=== PATIENT | female | born 1975 | race Caucasian/White ===

== ENCOUNTER 2019-04-25 11:22 | Day surgery (SDC) | payer OTHER ==
[2019-04-25] VITALS (11 sets, daily range): BP systolic 101–124; BP diastolic 60–76; PULSE 74–88; RESP 16–32; Ht 154.9 cm; Wt 78.3 kg
[~2019-04-25] VITALS: Ht 154.9 cm; Wt 78.3 kg
[~2019-04-25 11:22] MED LIST: LACTATED RINGER'S 1,000 ML IV SCH
[2019-04-25] MEDS ORDERED: ATOR10TA65 ORAL (12:14)
[2019-04-25] MEDS ORDERED: OMEP40CA6 ORAL (12:14)
[2019-04-25] MEDS ORDERED: METF-849 ORAL (12:14)
--- NOTE | 2019-04-25 13:00 | PREAC ---
Date/Time of Note Date/Time of Note DATE: 04/25/19 TIME: 12:58 Anesthesia Eval and Record Evaluation Time Pre-Procedure Interview DATE: 04/25/19 TIME: 12:58 Age 44 Sex female NPO: 8 hrs Preoperative diagnosis Excessive menstration Planned procedure D&C Past Medical History Past Medical History: Includes Cardio: Dyslipidemia Endo: Diabetes GI: GERD, Morbid obesity Surgery & Anesthesia Issues No known issue Meds Anticoagulation: No Beta Julien within 24 hr: No Reason Beta Julien not given: Pt. not on B-Julien Reported Medications Atorvastatin (Atorvastatin) 10 Mg Tablet, 20 MG ORAL DAILY 04/25/19 Omeprazole* (Omeprazole*) 40 Mg Capsule.dr, 1 CAP ORAL DAILY 04/25/19 Metformin* (Glucophage*) 500 Mg Tab, 1 TAB ORAL DAILY 04/25/19 Current Medications Lactated Ringer's 1,000 ml @ 125 mls/hr Q8H IV Last administered on 04/25/19at 12:10; Admin Dose 125 MLS/HR; Start 04/25/19 at 07:00; Stop 04/25/19 at 19:00 Meds reviewed: Yes Allergies Coded Allergies: No Known Allergy (Unverified , 04/25/19) Allergies Reviewed: Yes Labs/Studies Labs Reviewed: Reviewed by anesthesiologist test: N/A Studies: ECG Pre-procedure Exam Last vitals Vital Signs Date Temp Pulse Resp B/P (MAP) Pulse Ox O2 O2 Flow FiO2 Time Delivery Rate 04/25/19 98.3 77 16 124/76 98 Room Air 12:14 (92) Airway: Adequate mouth opening, Adequate thyromental dist Mallampati: Mallampati II Teeth: Normal Lung: Normal Heart: Normal ASA Physical Status ASA physical status: 3 Emergency: None Planned Anesthetic General/MAC: LMA Planned Pain Management Parenteral pain med Pre-operative Attestations Prior to commencing anesthesia and surgery, the patient was re-evaluated, there was verification of: *The patient's identity *The results of appropriate recent lab work and preoperative vital signs *The above evaluation not changing prior to induction *Anesthetic plan, risk benefits, alternative and complications discussed with patient/family; questions answered; patient/family understands, accepts and wishes to proceed. FLOR TIAN MD Apr 25, 2019 13:00
--- NOTE | 2019-04-25 13:20 | HPN ---
Date/Time of Note Date/Time of Note DATE: 04/25/19 TIME: 13:20 Interval H&P Admission Note Pt. seen H&P reviewed: No system changes LIGIA SALDANA MD Apr 25, 2019 13:20
[2019-04-25] MEDS ORDERED: MIDAZOLAM 1 MG/ML 2 ML INJ ONE (13:31)
[2019-04-25] MEDS ORDERED: FENTAnyl 50 MCG/ML VIAL ONE (13:32)
[2019-04-25] MEDS ORDERED: CEFAZOLIN 1 GM INJ ONE (14:29)
[2019-04-25] MEDS ORDERED: LIDOCAINE 2% (SDV) 5 ML INJ ONE (14:29)
[2019-04-25] MEDS ORDERED: PROPOFOL 20 ML ONE (14:29)
[2019-04-25] MEDS ORDERED: ONDANSETRON 4 MG INJ ONE (14:29)
--- NOTE | 2019-04-25 14:32 | SIPON ---
Date/Time of Note Date/Time of Note DATE: 04/25/19 TIME: 14:31 Operative Report Preoperative Diagnosis menometrorrhagia Postoperative Diagnosis see pathologic report Operation/Procedure Performed HYsteroscopic endometrial currettings Surgeon see signature line inventory assistant paul YOUNG Anesthesia: general Estimated blood loss: minimal Transfusion Required none Specimen enometrial curetting Grafts/Implants none Complications none LIGIA SALDANA MD Apr 25, 2019 14:32
--- NOTE | 2019-04-25 14:33 | PD.PPDC ---
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
--- NOTE | 2019-04-25 14:38 | PAC ---
Date/Time of Note Date/Time of Note DATE: 04/25/19 TIME: 14:38 Post-Anesthesia Notes Post-Anesthesia Note Last documented vital signs Vital Signs Date Temp Pulse Resp B/P (MAP) Pulse Ox O2 O2 Flow FiO2 Time Delivery Rate 04/25/19 98.3 77 16 124/76 98 Room Air 12:14 (92) Activity: WNL Respiratory function: WNL Cardiovascular function: WNL Mental status: Baseline Pain reasonably controlled: Yes Hydration appropriate: Yes Nausea/Vomiting absent: Yes Comments BP:118/67, P:78, Spo2:100%, T:98,8 FLOR TIAN MD Apr 25, 2019 14:38
[2019-04-25] MEDS ORDERED: HYDROmorphONE 1 MG/5 ML IV SYRINGE IV PRN ×2 (15:00)
[2019-04-25] MEDS ORDERED: MEPERIDINE 25 MG INJ IV PRN (15:00)
[2019-04-25] MEDS ORDERED: DIPHENHYDRAMINE 50 MG INJ IV PRN (15:00)
[2019-04-25] MEDS ORDERED: KETOROLAC 30 MG INJ IV PRN (15:00)
[2019-04-25] MEDS ORDERED: ONDANSETRON 4 MG INJ IV PRN (15:00)
[2019-04-25] MEDS ORDERED: FENTAnyl 50 MCG/ML VIAL IV PRN (15:00)
[2019-04-25] MEDS ORDERED: METOCLOPRAMIDE 10 MG INJ IV PRN (15:00)
--- NOTE | 2019-04-27 14:41 | OPR ---
DATE OF OPERATION: 04/25/2019 PREOPERATIVE DIAGNOSIS: Menometrorrhagia. POSTOPERATIVE DIAGNOSIS: See pathological report. OPERATION PERFORMED: Hysteroscopic endometrial shavings. ANESTHESIA: General. ANESTHESIOLOGIST: Refer to the chart. SURGEON: Izzy Lowry MD SHAKER OUT: Rod from [employer]. PROCEDURE: Under the proper induction of general anesthesia, the patient was placed in dorsal lithot berta position. Perineal area and vagina wall was prepped and draped in usual aseptic manner. Bimanua l examination revealed the uterus felt to be normal size and consistency, retroflexed and there was n o palpable adnexal pathology. Weighted speculum was introduced and the cervix was identified, which was clear and grasped with a single tooth tenaculum. Cavity sounded, which was 8 cm in depth. The h ysteroscope, which was prepared in usual fashion and after priming and connected to the normal saline which was gradually introduced into the endocervix and advanced to the fundus and both ostium visual ized clearly and the fundus visualized. At this point, the shaver was introduced through the side ch ml and then entire cavity was shaved in all directions with obtaining of a small amount of curetti ng in the retriever. Fluid loss was less than 50 mL. Procedure completed and the picture was taken intermittently and all the instruments were removed from the operative field. The patient withstood the procedure well and was sent to the recovery room in stable condition. ESTIMATED BLOOD LOSS: Minimal. Dictated By: IZZY RAMOS/JORDYN Conf#: [id number] DID#: [id number]
== END 2019-04-25 16:15 | disposition home or self-care (01) ==
LOC: SDS 11:22
PROVIDERS: ATTEND Obstetrics & Gynecology
DX: N92.1 Excessive and frequent menstruation with irregular cycle (principal)
CPT/HCPCS: 82962; 84703; 88305; J0690; J2250; J2405; J3010